=== PATIENT | female | born 1945 | race Caucasian/White ===

== ENCOUNTER 2017-08-10 00:51 | Emergency (ER) | payer MEDICARE, BC ==
--- NOTE | 2017-08-10 01:47 | EDM.PDOC ---
ED HPI GENERAL MEDICAL PROBLEM - General Chief Complaint: Cardiovascular Problem Stated Complaint: CONFUSION Time Seen by Provider: 08/10/17 01:25 Source of Information: Reports: Patient, Family History Limitations: Reports: No Limitations - History of Present Illness INITIAL COMMENTS - FREE TEXT/NARRATIVE: 71-year-old female who was in a very hot bath, struggled somewhat to get out because she has are pain and after she stood for a few seconds she was drying herself off and realized she was feeling lightheaded and confused. Then the burk were "moving" and she called for her . He sat her down and said that she was having trouble speaking and looked confused. They felt she should get checked because he had a stroke several years ago and thought it was similar. By the time they were getting in the car she was back to baseline and now feels fine. She felt no chest pain, shortness of breath, palpitations, headache, nausea or vomiting. She does not take medications for hypertension. She did just have a complete workup and preoperative physical for removal of a melanoma of the left arm in the last few months. Onset: Sudden Severity: Moderate Associated Symptoms: Reports: Confusion, Weakness. 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 left shoulder surgery Social & Family History - Tobacco Use Smoking Status *Q: Never Smoker Second Hand Smoke Exposure: No - Caffeine Use Caffeine Use: Reports: Coffee, Soda, Tea - Alcohol Use Days Per Week of Alcohol Use: 3 Number of Drinks Per Day: 2 Total Drinks Per Week: 6 - Recreational Drug Use Recreational Drug Use: No ED ROS GENERAL - Review of Systems Review Of Systems: See Below Constitutional: Denies: Fever, Chills HEENT: Reports: Vision Change (Vision was "funny" for several seconds) Respiratory: Reports: No Symptoms Cardiovascular: Reports: No Symptoms GI/Abdominal: Reports: No Symptoms : Reports: No Symptoms Skin: Reports: No Symptoms Neurological: Reports: Confusion, Dizziness, Weakness. Denies: Headache ED EXAM, GENERAL - Physical Exam Exam: See Below Exam Limited By: No Limitations General Appearance: Alert, No Apparent Distress Eye Exam: Bilateral Eye: Normal Inspection Respiratory/Chest: No Respiratory Distress, Lungs Clear Cardiovascular: Regular Rate, Rhythm Extremities: Normal Inspection. No: Pedal Edema Neurological: Alert, Oriented, No Motor/Sensory Deficits, Other (Romberg negative, no pronator drift) Psychiatric: Normal Affect, Normal Mood Skin Exam: Warm, Dry Course - Vital Signs Last Recorded V/S: Last Vital Signs Temp 96.0 F 08/10/17 01:23 Pulse 74 08/10/17 01:23 Resp 14 08/10/17 01:23 BP 166/90 H 08/10/17 01:23 Pulse Ox 98 08/10/17 01:23 Orthostatic Blood Pressure [ 141/91 Standing] Orthostatic Blood Pressure [ 148/92 Sitting] Orthostatic Blood Pressure [ 146/81 Supine] - Re-Assessments/Exams Free Text/Narrative Re-Assessment/Exam: 08/10/17 01:46 Orthostatic blood pressures were normal. I had a conversation with the patient for 10 minutes and saw no evidence of neurologic deficit of any kind. I explained presyncope which certainly fits the picture, they'll return if symptoms recur for no reason. Departure - Departure Time of Disposition: 02:20 Disposition: Home, Self-Care 01 Condition: Good Clinical Impression: Vasovagal near-syncope Instructions: Near-Syncope, [id number] Referrals: PCP,None [Primary Care Provider] - Forms: ED Department Discharge Care Plan Goals: Continue any current medications, get plenty of fluids and increase activity as tolerated. Return anytime if symptoms redevelop or you have other concerns.
== END 2017-08-10 01:55 | disposition home or self-care (01) ==
LOC: JP.ED 00:51
DX: R55 Syncope and collapse (principal)
CPT/HCPCS: 99282; 99285

== ENCOUNTER 2021-11-11 21:08 | Emergency (ER) | payer BC, MEDICARE ==
[2021-11-11 22:27] LABS: ESTIMATED GFR 36 mL/min (>60)
[2021-11-11] MEDS ORDERED: Sodium Chloride 0.9% 10 ML Syringe FLUSH PRN (22:45)
[2021-11-11] MEDS ORDERED: Iopamidol 755 Mg/ML 100 ML Bottle IV SCH (23:00)
[2021-11-11] MEDS ORDERED: Sodium Chloride 0.9% 100 ML IV SCH (23:00)
[2021-11-12] MEDS ORDERED: Aspirin 325 MG Tab.EC PO ONE (00:18)
[2021-11-12] MEDS ORDERED: Clopidogrel 75 MG Tab PO ONE (00:18)
== END 2021-11-12 00:39 | disposition home or self-care (01) ==
LOC: JP.ED 21:08
DX: G45.9 Transient cerebral ischemic attack, unspecified (principal)
CPT/HCPCS: 36415; 70450; 70496; 70498; 80053; 85025; 85610; 85730; 93005; 93010; 99283; 99284; A9270; J3490; Q9967

== ENCOUNTER 2023-06-27 18:33 | Emergency (ER) | payer MEDICARE ==
[2023-06-27] MEDS ORDERED: Sodium Chloride 0.9% 10 ML Syringe FLUSH PRN (18:39)
[2023-06-27 18:55] LABS: BASOPHILS ABSOLUTE AUTO 0.04 K/uL (0.00-0.10); BASOPHILS PERCENT AUTO 0.6 % (0.1-1.3); EOSINOPHILS ABSOLUTE AUTO 0.25 K/uL (0.00-0.40); EOSINOPHILS PERCENT AUTO 3.8 % (0.0-5.4); HEMATOCRIT 37.7 % (34.3-46.0); HEMOGLOBIN 12.5 g/dL (11.2-15.5); IMMATURE GRAN PERCENT AUTO 0.2 % (0.0-0.7); LYMPHOCYTES ABSOLUTE AUTO 2.62 K/uL (0.8-3.3); LYMPHOCYTES PERCENT AUTO 39.9 % (11.4-47.7); MEAN CORPUSCULAR HEMOGLOBIN 31.7 pg (31.6-35.5); MEAN CORPUSCULAR HGB CONC 33.2 g/dL (31.6-35.5); MEAN CORPUSCULAR VOLUME 95.7 fL (81.4-99.0); MONOCYTES ABSOLUTE AUTO 0.62 K/uL (0.20-0.90); MONOCYTES PERCENT AUTO 9.4 % (3.3-12.6); NEUTROPHILS ABSOLUTE AUTO 3.03 K/uL (1.0-7.6); NEUTROPHILS PERCENT AUTO 46.1 % (40.0-78.1); PLATELET COUNT,PLT 233 K/uL (130-375); RED BLOOD CELL COUNT 3.94 M/uL (3.77-5.24); WHITE BLOOD CELL COUNT,WBC 6.6 K/uL (3.2-11.0)
[2023-06-27 18:56] LABS: IMMATURE GRAN ABSOLUTE AUTO 0.01 K/uL (0.00-0.23)
[2023-06-27 19:16] LABS: ALANINE AMINOTRANSFERASE,ALT 22 U/L (12-78); ALBUMIN 3.3 g/dL (3.4-5.0); ALKALINE PHOSPHATASE 67 U/L (46-116); ANION GAP 7.8 mmol/L (5.0-14.0); ASPARTATE AMNIOTRANSFERASE,AST 19 U/L (15-37); BILIRUBIN TOTAL 0.2 mg/dL (0.2-1.0); BLOOD UREA NITROGEN,BUN 19 mg/dL (7-18); CALCIUM 8.2 mg/dL (8.5-10.1); CARBON DIOXIDE,CO2 28 mmol/L (21-32); CHLORIDE,CL 105 mmol/L (100-108); EST CRCL DRUG DOSING (CG) 39.39 mL/min; ESTIMATED GFR 57 mL/min (>60); GLUCOSE RANDOM 120 mg/dL (74-106); INR 1.1; POTASSIUM,K 3.9 mmol/L (3.6-5.2); PROTEIN TOTAL,TP 6.5 g/dL (6.4-8.2); PTT,PARTIAL THROMBOPLSTIN TIME 22.9 sec (21.8-27.3); SODIUM,NA 141 mmol/L (140-148); TROPONIN I HIGH SENSITIVITY 6.8 pg/mL (<=60.3)
[2023-06-27] MEDS: Iopamidol 755 Mg/ML 100 ML Bottle IV SCH (19:47)
[2023-06-27] MEDS: Sodium Chloride 0.9% 10 ML Syringe FLUSH PRN (19:47)
[2023-06-27] MEDS: Sodium Chloride 0.9% 100 ML IV SCH (19:47)
[2023-06-27] MEDS: Clopidogrel 75 MG Tab PO ONE (20:40)
== END 2023-06-27 20:51 | disposition home or self-care (01) ==
LOC: JP.ED 18:33
DX: G45.9 Transient cerebral ischemic attack, unspecified (principal); Z79.02 Long term (current) use of antithrombotics/antiplatelets; Z79.899 Other long term (current) drug therapy
CPT/HCPCS: 36415; 70450; 70496; 70498; 80053; 82947; 84484; 85025; 85610; 85730; 93005; 99285; A9270; J3490; Q9967; 93010; 99284

== ENCOUNTER 2024-04-27 20:55 | Emergency (ER) | payer MEDICARE ==
[2024-04-27 21:23] LABS: HEMATOCRIT 33.7 % (34.3-46.0); HEMOGLOBIN 11.2 g/dL (11.2-15.5); MEAN CORPUSCULAR HGB CONC 33.2 g/dL (31.6-35.5); MEAN CORPUSCULAR VOLUME 96.3 fL (81.4-99.0); RED BLOOD CELL COUNT 3.5 M/uL (3.77-5.24); WHITE BLOOD CELL COUNT,WBC 5.6 K/uL (3.2-11.0)
[2024-04-27 21:39] LABS: ANION GAP 7.6 mmol/L (5.0-14.0); CALCIUM 8.6 mg/dL (8.5-10.1); CREATININE 1.2 mg/dL (0.6-1.0); EST CRCL DRUG DOSING (CG) 32.29 mL/min; POTASSIUM,K 4.2 mmol/L (3.6-5.2)
[2024-04-27 21:41] LABS: INR 1.1; PROTHROMBIN TIME 10.9 sec (9.2-10.6)
[2024-04-27] MEDS: Sodium Chloride 0.9% 10 ML Syringe FLUSH ONE (22:14)
[2024-04-27] MEDS: Sodium Chloride 0.9% 100 ML IV ONE (22:14)
[2024-04-27] MEDS: Iopamidol 755 Mg/ML 100 ML Bottle IV ONE (22:14)
[2024-04-27] MEDS: Aspirin 81 MG Tab.Chew PO ONE (22:55)
[2024-04-27] MEDS: Clopidogrel 75 MG Tab PO ONE ×2 (22:55)
== END 2024-04-27 23:00 | disposition home or self-care (01) ==
LOC: JP.ED 20:55
DX: G45.9 Transient cerebral ischemic attack, unspecified (principal); Z90.89 Acquired absence of other organs; Z96.659 Presence of unspecified artificial knee joint; Z79.899 Other long term (current) drug therapy
CPT/HCPCS: 36415; 70450; 70496; 70498; 80048; 82947; 85027; 85610; 93005; 93010; 99284; A9270; J3490; Q9967

== ENCOUNTER 2024-09-19 16:56 | Emergency (ER) | payer MEDICARE ==
[2024-09-19] MEDS ORDERED: Sodium Chloride 0.9% 10 ML Syringe FLUSH PRN (17:32)
[2024-09-19 17:49] LABS: BASOPHILS ABSOLUTE AUTO 0.05 K/uL (0.00-0.10); BASOPHILS PERCENT AUTO 0.7 % (0.1-1.3); EOSINOPHILS PERCENT AUTO 2.8 % (0.0-5.4); HEMATOCRIT 33.9 % (34.3-46.0); HEMOGLOBIN 11.3 g/dL (11.2-15.5); IMMATURE GRAN ABSOLUTE AUTO 0.01 K/uL (0.00-0.23); IMMATURE GRAN PERCENT AUTO 0.1 % (0.0-0.7); LYMPHOCYTES ABSOLUTE AUTO 1.92 K/uL (0.8-3.3); LYMPHOCYTES PERCENT AUTO 27.2 % (11.4-47.7); MEAN CORPUSCULAR HEMOGLOBIN 32.4 pg (31.6-35.5); MEAN CORPUSCULAR HGB CONC 33.3 g/dL (31.6-35.5); MEAN CORPUSCULAR VOLUME 97.1 fL (81.4-99.0); MONOCYTES ABSOLUTE AUTO 0.62 K/uL (0.20-0.90); MONOCYTES PERCENT AUTO 8.8 % (3.3-12.6); NEUTROPHILS ABSOLUTE AUTO 4.25 K/uL (1.0-7.6); NEUTROPHILS PERCENT AUTO 60.4 % (40.0-78.1); PLATELET COUNT,PLT 226 K/uL (130-375); RED BLOOD CELL COUNT 3.49 M/uL (3.77-5.24); WHITE BLOOD CELL COUNT,WBC 7.1 K/uL (3.2-11.0)
[2024-09-19] MEDS: Sodium Chloride 0.9% 100 ML IV SCH (18:06)
[2024-09-19] MEDS: Iopamidol 755 Mg/ML 100 ML Bottle IV SCH (18:06)
[2024-09-19 18:12] LABS: CREATININE 1.2 mg/dL (0.6-1.0); EST CRCL DRUG DOSING (CG) 32.97 mL/min; MAGNESIUM 1.6 mg/dL (1.8-2.4); POTASSIUM,K 4.1 mmol/L (3.6-5.2); TROPONIN I HIGH SENSITIVITY 5.7 pg/mL (<=60.3)
[2024-09-19 18:13] LABS: ANION GAP 14.1 mmol/L (5.0-14.0)
== END 2024-09-19 19:04 | disposition home or self-care (01) ==
LOC: JP.ED 16:56
DX: E83.42 Hypomagnesemia (principal); R47.01 Aphasia; M19.90 Unspecified osteoarthritis, unspecified site; Z79.899 Other long term (current) drug therapy; Z86.16 Personal history of COVID-19
CPT/HCPCS: 36415; 70450; 70496; 70498; 80048; 83735; 84484; 85025; 93005; 99285; Q9967

== ENCOUNTER 2024-10-29 17:09 | Emergency (ER) | payer MEDICARE ==
[2024-10-29 17:35] LABS: BASOPHILS ABSOLUTE AUTO 0.06 K/uL (0.00-0.10); BASOPHILS PERCENT AUTO 0.9 % (0.1-1.3); EOSINOPHILS ABSOLUTE AUTO 0.18 K/uL (0.00-0.40); EOSINOPHILS PERCENT AUTO 2.8 % (0.0-5.4); HEMATOCRIT 35.2 % (34.3-46.0); HEMOGLOBIN 11.5 g/dL (11.2-15.5); IMMATURE GRAN PERCENT AUTO 0.2 % (0.0-0.7); LYMPHOCYTES ABSOLUTE AUTO 1.97 K/uL (0.8-3.3); LYMPHOCYTES PERCENT AUTO 30.8 % (11.4-47.7); MEAN CORPUSCULAR HEMOGLOBIN 32.7 pg (31.6-35.5); MEAN CORPUSCULAR HGB CONC 32.7 g/dL (31.6-35.5); MONOCYTES ABSOLUTE AUTO 0.64 K/uL (0.20-0.90); NEUTROPHILS ABSOLUTE AUTO 3.54 K/uL (1.0-7.6); NEUTROPHILS PERCENT AUTO 55.3 % (40.0-78.1); PLATELET COUNT,PLT 215 K/uL (130-375); RED BLOOD CELL COUNT 3.52 M/uL (3.77-5.24); WHITE BLOOD CELL COUNT,WBC 6.4 K/uL (3.2-11.0)
[2024-10-29 17:36] LABS: IMMATURE GRAN ABSOLUTE AUTO 0.01 K/uL (0.00-0.23)
[2024-10-29 17:55] LABS: INR 1.1; PTT,PARTIAL THROMBOPLSTIN TIME 23.2 sec (21.8-27.3)
[2024-10-29 17:58] LABS: ANION GAP 11.1 mmol/L (5.0-14.0); CALCIUM 9.1 mg/dL (8.5-10.1); CREATININE 1.2 mg/dL (0.6-1.0); EST CRCL DRUG DOSING (CG) 20.96 mL/min; POTASSIUM,K 3.8 mmol/L (3.6-5.2); TROPONIN I HIGH SENSITIVITY 8.4 pg/mL (<=60.3)
[2024-10-29 18:06] LABS: MAGNESIUM 1.8 mg/dL (1.8-2.4); TSH ULTRASENSITIVE 0.797 uIU/mL (0.358-3.740)
[2024-10-29] MEDS: Clopidogrel 75 MG Tab PO ONE (19:26)
== END 2024-10-29 19:30 | disposition home or self-care (01) ==
LOC: JP.ED 17:09
DX: G45.9 Transient cerebral ischemic attack, unspecified (principal); R47.1 Dysarthria and anarthria; Z86.16 Personal history of COVID-19; Z79.899 Other long term (current) drug therapy; Z79.84 Long term (current) use of oral hypoglycemic drugs
CPT/HCPCS: 36415; 70450; 70450-26; 80048; 83735; 84443; 84484; 85025; 85610; 85730; 93005; 93010; 99284; 99285; A9270-GY

== ENCOUNTER 2025-01-20 22:51 | Emergency (ER) | payer MEDICARE ==
[2025-01-21 00:58] LABS: BASOPHILS ABSOLUTE AUTO 0.06 K/uL (0.00-0.10); BASOPHILS PERCENT AUTO 0.8 % (0.1-1.3); EOSINOPHILS ABSOLUTE AUTO 0.35 K/uL (0.00-0.40); EOSINOPHILS PERCENT AUTO 4.7 % (0.0-5.4); IMMATURE GRAN PERCENT AUTO 0.1 % (0.0-0.7); LYMPHOCYTES ABSOLUTE AUTO 1.95 K/uL (0.8-3.3); LYMPHOCYTES PERCENT AUTO 26.3 % (11.4-47.7); MONOCYTES ABSOLUTE AUTO 0.68 K/uL (0.20-0.90); MONOCYTES PERCENT AUTO 9.2 % (3.3-12.6); NEUTROPHILS ABSOLUTE AUTO 4.36 K/uL (1.0-7.6); NEUTROPHILS PERCENT AUTO 58.9 % (40.0-78.1); PLATELET COUNT,PLT 250 K/uL (130-375); RED BLOOD CELL COUNT 3.78 M/uL (3.77-5.24); WHITE BLOOD CELL COUNT,WBC 7.4 K/uL (3.2-11.0)
[2025-01-21 01:00] LABS: APPEARANCE,URINE CLEAR (CLEAR); GLUCOSE,URINE NEGATIVE (NEGATIVE); OCCULT BLOOD,URINE NEGATIVE (NEGATIVE)
[2025-01-21 01:06] LABS: IMMATURE GRAN ABSOLUTE AUTO 0.01 K/uL (0.00-0.23)
[2025-01-21 01:10] LABS: SQUAMOUS EPITHELIAL CELLS,UR RARE /HPF; UROTHELIAL CELLS,URINE NOT SEEN /HPF
[2025-01-21 01:12] LABS: BLOOD UREA NITROGEN,BUN 17 mg/dL (7-18); CARBON DIOXIDE,CO2 27 mmol/L (21-32); CHLORIDE,CL 104 mmol/L (100-108); CREATININE 1.1 mg/dL (0.6-1.0); ESTIMATED GFR 50 mL/min (>60); GLUCOSE RANDOM 104 mg/dL (74-106); POTASSIUM,K 3.8 mmol/L (3.6-5.2); SODIUM,NA 139 mmol/L (140-148)
== END 2025-01-21 01:56 | disposition home or self-care (01) ==
LOC: JP.ED 22:51
DX: R42 Dizziness and giddiness (principal); T42.6X5A Adverse effect of other antiepileptic and sedative-hypnotic drugs, initial encounter; T45.525A Adverse effect of antithrombotic drugs, initial encounter; T39.015A Adverse effect of aspirin, initial encounter; Z79.82 Long term (current) use of aspirin; Z79.899 Other long term (current) drug therapy
CPT/HCPCS: 36415; 80048; 81001; 85025; 99283; 99284